=== PATIENT | male | born 1985 | race American Indian/Alaskan Native ===

== ENCOUNTER 2016-09-29 22:45 | Emergency (ER) | payer SELFPAY ==
[2016-09-29 23:06] VITALS: BP 143/87
== END 2016-09-30 06:00 | disposition left against medical advice (07) ==
LOC: ED 22:45
DX: G43.909 Migraine, unspecified, not intractable, without status migrainosus (principal); F17.200 Nicotine dependence, unspecified, uncomplicated; Z53.21 Procedure and treatment not carried out due to patient leaving prior to being seen by health care provider

== ENCOUNTER 2019-01-27 09:56 | Emergency (ER) | payer OTHER ==
[2019-01-27] MEDS ORDERED: FAMOTIDINE 20 MG/2 ML INJ IV ONE (11:09)
[2019-01-27] MEDS ORDERED: ONDANSETRON 4 MG/2 ML INJ IV ONE (11:09)
[2019-01-27] MEDS ORDERED: SODIUM CHLORIDE 0.9% 1000 ML 1,000 ML IV ONE (11:09)
--- NOTE | 2019-01-27 11:11 | Emergency Department Report ---
ED N/V/D HPI - General Chief complaint: Nausea/Vomiting/Diarrhea Stated complaint: VOMIT/WEAK Time Seen by Provider: 01/27/19 10:57 Source: patient, family Mode of arrival: Wheelchair Limitations: No Limitations - History of Present Illness Initial comments: 33-year-old male, no past medical history, presents to ED with nausea and vomiting since this morning. Patient went out last night pain and has alcoholic drinks. Girlfriend states he has 2 beers, 2 mixed drinks, and several shots of alcohol. Patient now with nausea and vomiting. Denies any abdominal pain. MD complaint: nausea, vomiting -: This morning Description of Vomiting: food contents, watery Associated Abdominal Pain: No Severity: moderate Consistency: constant Improves with: none Worsens with: none Context: alcohol abuse Associated Symptoms: denies: fever/chills - Related Data Previous Rx's Medication Instructions Recorded Last Taken Type Dicyclomine [Bentyl] 20 mg PO QID PRN #20 tablet 01/27/19 Unknown Rx Ondansetron [Zofran Odt] 4 mg PO Q8HR PRN #20 tab.rapdis 01/27/19 Unknown Rx Allergies Allergy/AdvReac Type Severity Reaction Status Date / Time No Known Allergies Allergy Verified 01/27/19 10:04 ED Review of Systems ROS: Stated complaint: VOMIT/WEAK Other details as noted in HPI Comment: All other systems reviewed and negative Constitutional: denies: chills, fever Gastrointestinal: nausea, vomiting. denies: abdominal pain, diarrhea ED Past Medical Hx - Past Medical History Hx Headaches / Migraines: Yes - Surgical History Past Surgical History?: No - Social History Smoking Status: Current Every Day Smoker Substance Use Type: None - Medications Home Medications: Home Medications Medication Instructions Recorded Confirmed Last Taken Type Dicyclomine [Bentyl] 20 mg PO QID PRN #20 tablet 01/27/19 Unknown Rx Ondansetron [Zofran Odt] 4 mg PO Q8HR PRN #20 tab.rapdis 01/27/19 Unknown Rx ED Physical Exam - General Limitations: No Limitations General appearance: alert, in no apparent distress - Head Head exam: Present: atraumatic, normocephalic - Eye Eye exam: Present: normal appearance, EOMI - ENT ENT exam: Present: mucous membranes moist - Neck Neck exam: Present: normal inspection - Respiratory Respiratory exam: Present: normal lung sounds bilaterally. Absent: respiratory distress - Cardiovascular Cardiovascular Exam: Present: regular rate, normal rhythm - GI/Abdominal GI/Abdominal exam: Present: soft, tenderness (mild, LLQ tenderness). Absent: distended - Extremities Exam Extremities exam: Present: normal inspection - Neurological Exam Neurological exam: Present: alert, oriented X3 - Psychiatric Psychiatric exam: Present: normal affect, normal mood - Skin Skin exam: Present: warm, dry, intact, normal color ED Course Vital Signs 01/27/19 01/27/19 09:59 15:13 Pulse Rate 77 88 Respiratory 16 16 Rate Blood Pressure 131/87 121/66 [Left] O2 Sat by Pulse 98 99 Oximetry ED Medical Decision Making - Lab Data Result diagrams: 01/27/19 11:57 01/27/19 11:57 - Radiology Data Radiology results: report reviewed, image reviewed - Medical Decision Making 33-year-old male with nausea or vomiting, abdominal pain after drinking alcohol last night. Patient is given a half amp of D50 for mild hypoglycemia. CT scan is negative for any intra-abdominal pathology. Patient given 1 L bolus of fluids. Currently feeling much better, rating around the ER. Will discharge at this time. The patient follow-up advised. Return precautions given. - Differential Diagnosis dehydration, gastritis, diverticulitis, appendicitis Critical care attestation.: If time is entered above; I have spent that time in minutes in the direct care of this critically ill patient, excluding procedure time. ED Disposition Clinical Impression: Nausea & vomiting Disposition: DC-01 TO HOME OR SELFCARE Is pt being admited?: No Condition: Stable Instructions: Acute Nausea and Vomiting (ED) Prescriptions: Dicyclomine [Bentyl] 20 mg PO QID PRN #20 tablet PRN Reason: abdominal pain Ondansetron [Zofran Odt] 4 mg PO Q8HR PRN #20 tab.rapdis PRN Reason: Vomiting Referrals: PRIMARY CARE, [Primary Care Provider] - 3-5 Days [facility] [Provider Group] - 3-5 Days Time of Disposition: 14:12
[2019-01-27 12:29] LABS: Alanine Aminotransferase 24 units/L (7-56); Albumin 4.8 g/dL (3.9-5); BUN/Creatinine Ratio 21; Blood Urea Nitrogen 15 mg/dL (9-20); Calcium 8.8 mg/dL (8.4-10.2); Hemolysis Index 73
[2019-01-27 12:34] LABS: Basophils # (Auto) 0.1 K/mm3 (0.0-0.1); Basophils % (Auto) 0.5 % (0.0-1.8); Eosinophils % (Auto) 0.1 % (0.0-4.3); Hematocrit 47.5 % (35.5-45.6); Lymphocytes % (Auto) 11.8 % (13.4-35.0); Mean Corpuscular HGB Conc 32 % (32-34); Mean Corpuscular Volume 92 fl (84-94); Monocytes # (Auto) 0.8 K/mm3 (0.0-0.8); Monocytes % (Auto) 4.9 % (0.0-7.3); Red Blood Count 5.16 M/mm3 (3.65-5.03); Red Cell Distribution Width 13.7 % (13.2-15.2)
[2019-01-27] MEDS ORDERED: DEXTROSE 50% IN WATER (25GM) 50 ML SYRINGE IV ONE (12:34)
[2019-01-27 12:41] LABS: Platelet Count 145 K/mm3 (140-440)
[2019-01-27 12:49] LABS: Bilirubin,Direct 0.2 mg/dL (0-0.2)
--- NOTE | 2019-01-27 13:56 | Cat Scan Report ---
CT ABDOMEN AND PELVIS WITH CONTRAST HISTORY: vomiting, abd pain. COMPARISON: None. TECHNIQUE: CT images of the abdomen and pelvis were obtained following administration of intravenous contrast. All CT scans at this location are performed using CT dose reduction for ALARA by means of automated exposure control. CONTRAST: 100 ml of intravenous contrast administered. FINDINGS: Lungs/bones: Lung bases are clear. No acute osseous abnormality. Abdomen/pelvis: There is mild hepatic steatosis. Liver is otherwise unremarkable. The gallbladder, s pleen, pancreas, adrenals, kidneys, and proximal GI tract appear unremarkable. Urinary bladder is unremarkable. Prostate is normal. No pelvic free fluid or acute colonic abnormalit y identified. The appendix and terminal ileum appear normal. IMPRESSION: 1. No acute abnormality. Signer Name: Jair Hanson MD Signed: 01/27/2019 1:51 PM Workstation Name: [id number]
[2019-01-27 15:15] VITALS: BP 121/66
== END 2019-01-27 15:15 | disposition home or self-care (01) ==
LOC: ED 09:56
DX: R11.2 Nausea with vomiting, unspecified (principal); G43.909 Migraine, unspecified, not intractable, without status migrainosus; F17.200 Nicotine dependence, unspecified, uncomplicated; R10.9 Unspecified abdominal pain
CPT/HCPCS: 36415; 74177; 80048; 80076; 82962; 83690; 85025; 96361; 96374; 96375; 99284; J2405; J7030; Q9967